=== PATIENT | male | born 1990 | race Caucasian/White ===

== ENCOUNTER 2016-08-31 11:15 | Emergency (ER) | payer SELFPAY ==
--- NOTE | 2016-08-31 11:55 | ER Document Report ---
ED Hand/Wrist Injury - General Chief Complaint: Hand Injury Stated Complaint: HAND INJURY Time Seen by Provider: 08/31/16 11:50 Notes: 25 yo male c/o pain to right hand. punched a wall yesterday TRAVEL OUTSIDE OF THE [place] IN LAST 30 DAYS: No - HPI Where: Work Timing: Constant Quality of pain: Achy - Related Data Allergies/Adverse Reactions: ibuprofen [From Motrin] Allergy (Verified 01/20/12 17:17) Past Medical History - General Information source: Patient - Social History Smoking Status: Never Smoker Frequency of alcohol use: None Drug Abuse: None Lives with: Family Family History: Reviewed & Not Pertinent - Medical History Medical History: Negative Pulmonary Medical History: Denies: Hx Asthma Renal/ Medical History: Denies: Hx Peritoneal Dialysis Psychiatric Medical History: Reports: Hx Depression - General anxiety, PTSD tx for in past Past Surgical History: Reports: Hx Oral Surgery - Immunizations Immunizations up to date: Yes Hx Diphtheria, Pertussis, Tetanus Vaccination: Yes Review of Systems - Review of Systems Constitutional: No symptoms reported EENT: No symptoms reported Cardiovascular: No symptoms reported Respiratory: No symptoms reported Gastrointestinal: No symptoms reported Genitourinary: No symptoms reported Male Genitourinary: No symptoms reported Musculoskeletal: See HPI Skin: No symptoms reported Hematologic/Lymphatic: No symptoms reported Neurological/Psychological: No symptoms reported Physical Exam - Vital signs Vitals: Temp Pulse Resp BP Pulse Ox 98.4 F 53 L 16 119/52 L 99 08/31/16 11:17 08/31/16 11:17 08/31/16 11:17 08/31/16 11:17 08/31/16 11:17 Interpretation: Normal - General General appearance: Appears well, Alert - HEENT Head: Normocephalic, Atraumatic Eyes: Normal Pupils: PERRL - Respiratory Respiratory status: No respiratory distress Chest status: Nontender Breath sounds: Normal Chest palpation: Normal - Cardiovascular Rhythm: Regular Heart sounds: Normal auscultation Murmur: No - Abdominal Inspection: Normal Distension: No distension Bowel sounds: Normal Tenderness: Nontender Organomegaly: No organomegaly - Back Back: Normal, Nontender - Extremities General lower extremity: Normal inspection, Nontender, Normal color, Normal ROM , Normal temperature, Normal weight bearing. No: Abel's sign Hand: Tender - right dorsal hand over 4th and 5th metacarpals, Ecchymosis, Swelling - Neurological Neuro grossly intact: Yes Cognition: Normal Orientation: AAOx4 Bishnu Coma Scale Eye Opening: Spontaneous Eva Coma Scale Verbal: Oriented Bishnu Coma Scale Motor: Obeys Commands Bishnu Coma Scale Total: 15 Speech: Normal Motor strength normal: LUE, RUE, LLE, RLE Sensory: Normal - Psychological Associated symptoms: Normal affect, Normal mood - Skin Skin Temperature: Warm Skin Moisture: Dry Skin Color: Normal Course - Re-evaluation Re-evalutation: 08/31/16 12:46 + intrarticular 5th metacarpal base fracture. results reviewed with patient. will immobilize and have patient follow up with orthopedist. pt stable for discharge and agreeable with plan - Vital Signs Vital signs: Temp Pulse Resp BP Pulse Ox 98.4 F 53 L 16 119/52 L 99 08/31/16 11:17 08/31/16 11:17 08/31/16 11:17 08/31/16 11:17 08/31/16 11:17 Procedures - Immobilization right hand Pre-Proc Neuro Vasc Exam: Normal Immobilizer type: Ulnar - ulnar gutter Performed by: PCT Post-Proc Neuro Vasc Exam: Normal Alignment checked and good: Yes Discharge - Discharge Clinical Impression: Boxers fracture Qualifiers: Encounter type: initial encounter Fracture type: closed Qualified Code(s): S62.339A - Displaced fracture of neck of unspecified metacarpal bone, initial encounter for closed fracture Condition: Stable Disposition: HOME, SELF-CARE Instructions: Fractured Fifth Metacarpal ([facility]), Splint Pending Casting ([facility]), Sling to be Used ([facility]), Ice & Elevation ([facility]) Additional Instructions: You have a hand fracture wear splint until seen by orthopedist Referrals: GILMA THOMAS MD [ACTIVE STAFF] - Follow up as needed
--- NOTE | 2016-08-31 12:18 | RADIOLOGY REPORT (SQ) ---
EXAM DESCRIPTION: HAND RIGHT 3 VIEWS COMPLETED DATE/TIME: 08/31/2016 12:04 pm REASON FOR STUDY: punched wall COMPARISON: 09/06/2010 EXAM PARAMETERS: NUMBER OF VIEWS: Three views. TECHNIQUE: AP, lateral and oblique radiographic images acquired of the right hand. LIMITATIONS: None. FINDINGS: MINERALIZATION: Normal. BONES: Mildly displaced intra-articular fracture through the base of the 5th metacarpal. Bones other keys intact. JOINTS: No effusions. SOFT TISSUES: Associated soft tissue swelling. OTHER: No other significant finding. IMPRESSION: INTRA-ARTICULAR 5TH METACARPAL BASE FRACTURE. TECHNICAL DOCUMENTATION: JOB ID: [id number] [employer]- All Rights Reserved
[2016-08-31 13:48] VITALS: BP 131/66
== END 2016-08-31 13:48 | disposition home or self-care (01) ==
LOC: ER 11:15
PROC: 2W3CX1Z Immobilization of Right Lower Arm using Splint (ICD-10-PCS; principal; 2016-08-31)
DX: S62.336A Displaced fracture of neck of fifth metacarpal bone, right hand, initial encounter for closed fracture (principal); W22.01XA Walked into wall, initial encounter; Y99.0 Civilian activity done for income or pay; Z88.6 Allergy status to analgesic agent
CPT/HCPCS: 99283